=== PATIENT | male | born 1975 | race Caucasian/White ===

== ENCOUNTER 2021-03-04 12:24 | Emergency (ER) | payer OTHER ==
[2021-03-04 13:56] LABS: CORONAVIRUS COVID-19 NAA POSITIVE (NEGATIVE); INFLUENZA A NAA NEGATIVE (NEGATIVE); INFLUENZA B NAA NEGATIVE (NEGATIVE)
== END 2021-03-04 14:50 | disposition home or self-care (01) ==
LOC: MW.ED 12:24
DX: U07.1 COVID-19 (principal)
CPT/HCPCS: 0240U; 71045; 99283